=== PATIENT | female | born 1935 | race Caucasian/White ===

== ENCOUNTER 2021-12-30 15:53 | Outpatient (CLI) | payer MEDICARE, BC | END 2021-12-30 15:54 | disposition home or self-care (01) | LOC: CSHRAD 15:53 | PROVIDERS: ATTEND Family Medicine Sports Medicine | DX: M15.9 Polyosteoarthritis, unspecified (principal); R12 Heartburn; R53.83 Other fatigue; E78.5 Hyperlipidemia, unspecified; E03.8 Other specified hypothyroidism | CPT/HCPCS: 80053; 80061; 82306; 82607; 82728; 82746; 84443; 85025 ==

== ENCOUNTER 2024-06-07 13:01 | Emergency (ER) | payer MEDICARE ==
[2024-06-07 15:15] LABS: #Basophils 0.04 10x3/uL (0.0-0.2); #Eosinophils 0.05 10x3/uL (0.0-0.5); #Monocytes 0.48 10x3/uL (0.0-1.1); #Neutrophils 4.71 10x3/uL (1.5-8.4); %Basophils 0.5 % (0.0-2.0); %Eosinophils 0.7 % (0.0-6.0); %Lymphocytes 27.7 % (18.0-47.0); %Monocytes 6.5 % (0.0-10.0); %Neutrophils 64.3 % (40.0-75.0); Hematocrit 40.6 % (34.9-44.5); Hemoglobin 12.8 g/dL (12.0-15.5); Mean Corpuscular HGB CONC 31.5 g/dL (32.0-36.0); Mean Corpuscular Hemoglobin 28.9 pg (27.0-33.0); Mean Corpuscular Volume 91.6 fL (81.6-98.3); Mean Platelet Volume 9.3 fL (7.4-10.4); Platelet Count 265 10x3/uL (150-450); RBC Distribution Width 12.8 % (11.5-14.5); Red Blood Cell (RBC) Count 4.43 10x6/uL (3.90-5.03); White Blood Cell (WBC) Count 7.3 10x3/uL (3.5-10.5)
[2024-06-07 15:23] LABS: Bilirubin Neg (Negative); Blood, Urine 25 (Negative); Clarity Clear (Clear); Glucose, Urine (Dipstick) Normal (Negative); Ketone, Urine Negative (Negative); Leukocyte 100 (Negative); Nitrite Negative (Negative); Protein, Urine (Dipstick) 15 mg/dl (Neg-Trace); Urobilinogen Normal mg/dL (Less than 2)
[2024-06-07 15:23] LABS: ALT (SGPT) 12 U/L (8-55); AST (SGOT) 19 U/L (5-34); Alkaline Phosphatase 71 U/L (40-110); Anion Gap 16 mmol/L (10-20); BUN (Urea Nitrogen) 12 mg/dL (9.8-20.1); Bilirubin, Total 0.3 mg/dL (0.2-1.2); Calc. Creatinine Clearance 0 mL/min (70-130); Calcium 9.4 mg/dL (7.8-10.44); Carbon Dioxide 25 mmol/L (23-31); Chloride 103 mmol/L (98-107); Estimated GFR 67; Globulin 3.2 g/dL (2.4-3.5); Glucose 83 mg/dL (83-110); Lipase 32 U/L (8-78); Magnesium 2.3 mg/dL (1.6-2.6); Potassium 3.9 mmol/L (3.5-5.1); Protein, Total 7.2 g/dL (5.8-8.1); Sodium 140 mmol/L (136-145)
[2024-06-07 15:25] LABS: Troponin I 0.012 ng/mL (< 0.028)
[2024-06-07 15:45] LABS: CAUTI Indications for Culture Alt mental st,lethar
[2024-06-07 15:46] LABS: Transitional Epithelial 0-3 HPF (None Seen)
[2024-06-07 15:49] LABS: Bacteria/HPF 2+ HPF (None Seen); Mucous/LPF 3+ LPF (<2+)
[2024-06-07 15:52] LABS: Urine Culture Reflex No No
== END 2024-06-07 17:03 | disposition home or self-care (01) ==
LOC: CSHERS 13:01
DX: R42 Dizziness and giddiness (principal); R07.89 Other chest pain; R11.0 Nausea; I10 Essential (primary) hypertension; Z55.0 Illiteracy and low-level literacy
CPT/HCPCS: 36415; 71045; 80053; 81001; 83690; 83735; 83880; 84443; 84484; 85025; 85379; 93005